=== PATIENT | female | born 1965 | race Caucasian/White ===

== ENCOUNTER 2020-10-06 11:22 | Emergency (ER) | payer BC, SELFPAY ==
--- OUTSIDE RECORDS SUMMARY | 2020-10-06 11:24 | XMS REPORT | Continuity of Care Document ---
:[address] [facility] t Address [address] [place] [address] Care Team Providers Name Role Phone Lab, [facility] Fam Pob I Attending Clinician Unavailable Doctor Unassigned, Name Attending Clinician Unavailable Problems This patient has no known problems. Allergies, Adverse Reactions, Alerts This patient has no known allergies or adverse reactions. Medications This patient has no known medications. Procedures This patient has no known procedures. Encounters Start End Encounter Admission Attending Care Care Encounter Source Date/Time Date/Time Type Type Clinicians Facility Department ID 2019-11-14 2019-11-14 Laboratory Lab, [facility] [id number] 10:25:01 10:45:01 Only Fam Pob I Health [id number] [place] [id number] [facility] [phone] [facility] Office [facility] 2019-11-07 2019-11-07 Patient Doctor GUERA [id number] 00:00:00 00:00:00 Secure Msg Unassigned, LATIA [id number] [place] [facility] [id number] 2019-11-06 2019-11-06 Laboratory Lab, [facility] [id number] 09:37:38 09:52:38 Only Fam Pob I Health [id number] [place] [id number] [facility]io [phone] [facility] 2019-11-06 2019-11-06 Letter Doctor GUERA [id number] 00:00:00 00:00:00 (Out) Unassigned, LATIA [id number] [place] [facility] [id number] [id number] Results This patient has no known results.
--- NOTE | 2020-10-06 12:31 | RAD REPORT ---
EXAM DESCRIPTION: CT - Head Brain Wo Cont - 10/06/2020 12:19 pm CLINICAL HISTORY: DIZZINESS Headache, drowsiness COMPARISON: No comparisons TECHNIQUE: All CT scans are performed using dose optimization technique as appropriate and may inclu de automated exposure control or mA/KV adjustment according to patient size. FINDINGS: No intracranial hemorrhage, hydrocephalus or extra-axial fluid collection.No areas of brai n edema or evidence of midline shift. The paranasal sinuses and mastoids are clear. The calvarium is intact. IMPRESSION: No acute intracranial abnormality.
--- NOTE | 2020-10-06 13:50 | ER ---
Nurse's Notes [facility] Name: Lizz Ruiz Age: 55 yrs Sex: Female : 1965 Arrival Date: 10/06/2020 Time: 11:22 Bed 16 Private MD: Diagnosis: Dizziness and giddiness Presentation: 10/06 11:55 Chief complaint: Patient states: Dizziness off/on since 2300 last night. Noticed both ll1 legs feels weak at 0330 am. Noticed R heel felt jittery/shaky. Tele visit doc told her to come in for eval. Coronavirus screen: Client denies travel out of the [place] in the last 14 days. At this time, the client does not indicate any symptoms associated with coronavirus-19. Ebola Screen: Patient denies travel to an Ebola-affected area in the 21 days before illness onset. Initial Sepsis Screen: Does the patient meet any 2 criteria? No. Patient's initial sepsis screen is negative. Does the patient have a suspected source of infection? No. Patient's initial sepsis screen is negative. Risk Assessment: Do you want to hurt yourself or someone else? Patient reports no desire to harm self or others. Onset of symptoms was October 05, 2020. 11:55 Method Of Arrival: Ambulatory ll1 11:55 Acuity: EMMA 3 ll1 Historical: - Allergies: 11:57 No Known Allergies; ll1 - PMHx: 11:57 stroke; Diabetes mellitus; ll1 - PSHx: 11:57 None; ll1 - Immunization history:: Client reports having NOT received the Covid vaccine. Flu vaccine is not up to date. - Social history:: Smoking status: Patient reports the use of cigarette tobacco products, smokes one-half pack cigarettes per day. - Family history:: not pertinent. - Hospitalizations: : No recent hospitalization is reported. Screenin:46 Abuse screen: Denies threats or abuse. Nutritional screening: No deficits noted. jd3 Tuberculosis screening: No symptoms or risk factors identified. Fall Risk Ambulatory Aid- None/Bed Rest/Nurse Assist (0 pts). Gait- Normal/Bed Rest/Wheelchair (0 pts) Mental Status- Oriented to own ability (0 pts). Total Anthony Fall Scale indicates No Risk (0-24 pts). Assessment: 13:45 General: Appears in no apparent distress. comfortable, Behavior is calm, cooperative, jd3 appropriate for age. Pain: Denies pain. Neuro: Level of Consciousness is awake, alert, obeys commands, Oriented to person, place, time, situation, [employer] are equal bilaterally Moves all extremities. Full function Gait is steady, Speech is normal, Facial symmetry appears normal, Pupils are PERRLA. Cardiovascular: Denies chest pain, Capillary refill < 3 seconds Patient's skin is warm and dry. Respiratory: Airway is patent Respiratory effort is even, unlabored, Respiratory pattern is regular, symmetrical, Denies cough, shortness of breath. GI: No signs and/or symptoms were reported involving the gastrointestinal system. : No signs and/or symptoms were reported regarding the genitourinary system. EENT: No signs and/or symptoms were reported regarding the EENT system. Derm: Skin is intact, Skin is dry, Skin is normal, Skin temperature is warm. Musculoskeletal: Circulation, motion, and sensation intact. Range of motion: intact in all extremities. Vital Signs: 11:55 BP 104 / 81; Pulse 81; Resp 17; Temp 97.6; Pulse Ox 97% ; Weight 108.86 kg; Height 5 ll1 ft. 5 in. (165.10 cm); Pain 0/10; 13:47 Pulse 82; Resp 16 S; Pulse Ox 97% on R/A; jd3 13:57 BP 121 / 86; Pulse 83; Resp 16 S; Pulse Ox 100% on R/A; jd3 11:55 Body Mass Index 39.94 (108.86 kg, 165.10 cm) ll1 ED Course: 11:22 Patient arrived in ED. ds1 11:55 Arm band placed on. ll1 11:57 Triage completed. ll1 12:04 Augustus Rodríguez MD is Attending Physician. rn 12:19 CT Head Brain wo Cont In Process Unspecified. EDMS 13:39 Patient placed in an exam room, on a stretcher. ll1 13:40 Mamadou Natarajan RN is Primary Nurse. jd3 13:46 Patient has correct armband on for positive identification. Bed in low position. Call jd3 light in reach. Side rails up X 1. Pulse ox on. NIBP on. 13:46 No provider procedures requiring assistance completed. Patient did not have IV access jd3 during this emergency room visit. Administered Medications: No medications were administered Outcome: 13:47 Condition: stable jd3 13:50 Discharge ordered by . rn 13:58 Discharged to home ambulatory, with family. jd3 13:58 Discharge instructions given to patient, Instructed on discharge instructions, follow up and referral plans. Demonstrated understanding of instructions, follow-up care. 13:58 Patient left the ED. jd3 Signatures: Dispatcher [employer] EDMN VilledaNina ds1 Augustus Rodríguez MD MD rn Davies, Jonathon, RN RN Giuseppe Canales RN RN ll1
--- NOTE | 2020-10-06 13:51 | EDPHYS ---
Physician Documentation [facility] Name: Lizz Ruiz Age: 55 yrs Sex: Female : 1965 Arrival Date: 10/06/2020 Time: 11:22 Bed 16 Private MD: ED Physician Augustus Rodríguez HPI: 10/06 12:45 This 55 yrs old Female presents to ER via Ambulatory with complaints of rn Dizziness. 12:45 The patient presents with dizziness, lightheadedness. Onset: The symptoms/episode rn began/occurred last night. Modifying factors: The symptoms are alleviated by nothing, the symptoms are aggravated by standing up, changing position. Associated signs and symptoms: Pertinent negatives: abdominal pain, agitation, ataxia, blurred vision, chest pain, combativeness, confusion, diaphoresis, focal weakness, head injury, headache, nausea, near-syncope, numbness, palpitations, seizure, shortness of breath, syncope, tingling, vomiting. Severity of symptoms: At their worst the symptoms were mild in the emergency department the symptoms have resolved. The patient has experienced a previous episode. The patient has not recently seen a physician. Patient states last night while at work up after bending over and felt dizzy, lightheaded. Denies head injury. Denies chest pain/shortness of breath/illness/abdominal pain/nausea/vomiting. Reports currently feels normal without dizziness or focal neurological problems. States felt slight weakness in both lower extremities at the time of dizziness. Wanted to come in to make sure that she did not have a stroke.. Historical: - Allergies: 11:57 No Known Allergies; ll1 - PMHx: 11:57 stroke; Diabetes mellitus; ll1 - PSHx: 11:57 None; ll1 - Immunization history:: Client reports having NOT received the Covid vaccine. Flu vaccine is not up to date. - Social history:: Smoking status: Patient reports the use of cigarette tobacco products, smokes one-half pack cigarettes per day. - Family history:: not pertinent. - Hospitalizations: : No recent hospitalization is reported. ROS: 12:45 Constitutional: Negative for fever, chills, and weight loss, Eyes: Negative for injury, rn pain, redness, and discharge, ENT: Negative for injury, pain, and discharge, Neck: Negative for injury, pain, and swelling, Cardiovascular: Negative for chest pain, palpitations, and edema, Respiratory: Negative for shortness of breath, cough, wheezing, and pleuritic chest pain, Abdomen/GI: Negative for abdominal pain, nausea, vomiting, diarrhea, and constipation, Back: Negative for injury and pain, : Negative for injury, bleeding, discharge, and swelling, MS/Extremity: Negative for injury and deformity, Skin: Negative for injury, rash, and discoloration, Neuro: Negative for headache, numbness, tingling, and seizure. 12:45 All other systems are negative. rn Exam: 12:45 Constitutional: This is a well developed, well nourished patient who is awake, alert, rn and in no acute distress. Ambulatory without assistance or distress Head/Face: Normocephalic, atraumatic. Eyes: Periorbital areas with no swelling, redness, or edema. Cardiovascular: Regular rate and rhythm. No pulse deficits. Respiratory: No increased work of breathing, no retractions or nasal flaring. Abdomen/GI: Soft, non-tender Skin: Warm, dry MS/ Extremity: Pulses equal, no cyanosis Neuro: Awake and alert, GCS 15, oriented to person, place, time, and situation. Cranial nerves II-XII grossly intact. Motor strength 5/5 in all extremities. Sensory grossly intact. Cerebellar exam normal. Normal gait. Vital Signs: 11:55 BP 104 / 81; Pulse 81; Resp 17; Temp 97.6; Pulse Ox 97% ; Weight 108.86 kg; Height 5 ll1 ft. 5 in. (165.10 cm); Pain 0/10; 13:47 Pulse 82; Resp 16 S; Pulse Ox 97% on R/A; jd3 13:57 BP 121 / 86; Pulse 83; Resp 16 S; Pulse Ox 100% on R/A; jd3 11:55 Body Mass Index 39.94 (108.86 kg, 165.10 cm) ll1 MDM: 12:04 Patient medically screened. rn 13:49 Differential diagnosis: CVA, generalized weakness, hypovolemia, idiopathic dizziness, rn near-syncope, TIA. Data reviewed: vital signs, nurses notes, radiologic studies, CT scan, and as a result, I will discharge patient. Counseling: I had a detailed discussion with the patient and/or guardian regarding: the historical points, exam findings, and any diagnostic results supporting the discharge/admit diagnosis, radiology results, the need for outpatient follow up, to return to the emergency department if symptoms worsen or persist or if there are any questions or concerns that arise at home. Response to treatment: the patient's condition has returned to base line, the patient is now symptom free, and as a result, I will discharge patient. Special discussion: I discussed with the patient/guardian in detail that at this point there is no indication for admission to the hospital. It is understood, however, that if the symptoms persist or worsen the patient needs to return immediately for re-evaluation. ED course: Head does not show any acute findings. Stable vital signs. Normal neurological exam. Will DC home with PCP follow-up as needed.. 10/06 12:04 Order name: CT Head Brain wo Cont; Complete Time: 12:55 rn Administered Medications: No medications were administered Disposition Summary: 10/06/20 13:50 Discharge Ordered Location: Home rn Problem: new rn Symptoms: have improved rn Condition: Stable rn Diagnosis - Dizziness and giddiness rn Followup: rn - With: Private Physician - When: As needed - Reason: Recheck today's complaints, Re-evaluation by your physician Discharge Instructions: - Discharge Summary Sheet rn - Dizziness rn Forms: - Medication Reconciliation Form rn - Thank You Letter rn - Antibiotic fall intern - Prescription Opioid Use rn Signatures: Dispatcher [employer] Augustus Fishman MD MD rn Lewis, Lynsay, RN RN ll1
[2020-10-06 14:22] VITALS: BP 121/86; O2SAT 100
[2020-10-06 14:27] VITALS: TEMP 97.6
== END 2020-10-06 13:58 | disposition home or self-care (01) ==
LOC: ER 11:22
DX: R42 Dizziness and giddiness (principal); R53.1 Weakness; E11.9 Type 2 diabetes mellitus without complications; F17.210 Nicotine dependence, cigarettes, uncomplicated; Z86.73 Personal history of transient ischemic attack (TIA), and cerebral infarction without residual deficits
CPT/HCPCS: 70450; 99283

== ENCOUNTER 2024-04-21 02:44 | Emergency (ER) | payer BC, SELFPAY ==
[2024-04-21] MEDS ORDERED: HYDROCODONE/APAP 5/325 MG TAB ONE (03:07)
[2024-04-21] MEDS ORDERED: LOSARTAN POTASSIUM 50 MG TABLET ONE (03:07)
[2024-04-21 03:22] LABS: Absolute Basophils 0.1 K/uL (0-0.5); Absolute Eosinophils 0.2 K/uL (0-0.5); Absolute Lymphocytes (CBC) 3.1 K/uL (0.7-4.9); Absolute Monocytes 0.7 K/uL (0.1-1.3); Absolute Neutrophil 5.5 K/uL (1.8-8.0); Basophils % 0.8 % (0-1.3); Eosinophils % 2.2 % (0-4.4); Hematocrit 42.9 % (36.0-45.0); Hemoglobin 14.8 g/dL (12.0-15.0); Lymphocytes % 32.2 % (15.3-44.8); MCH 32.7 pg (27.0-35.0); MCHC 34.4 g/dL (32.0-36.0); MPV 7.5 fL (7.6-11.3); Monocytes % 7.4 % (3.3-12.3); Neutrophils % 57.4 % (41.7-73.7); Platelets 303 thou/uL (152-406); RBC Red Blood Cell Count 4.51 M/uL (3.86-4.86)
[2024-04-21 04:12] LABS: Albumin 3.6 g/dL (3.4-5.0); Albumin/Globulin Ratio 0.9 (1.1-1.8); Anion Gap 9.2 mEq/L (5.0-15.0); Bilirubin Total 0.2 mg/dL (0.2-1.0); Globulin 4.1 g/dL (2.3-3.5); Protein, Total 7.7 g/dL (6.4-8.2)
[2024-04-21 04:19] LABS: Potassium 4.2 mEq/L (3.5-5.1)
--- NOTE | 2024-04-21 04:42 | RAD REPORT ---
EXAM: Extremity Venous Uni Ltd US Right Lower Extremity Venous Duplex Doppler HISTORY: Numbness, tingling COMPARISON: None TECHNIQUE: Grayscale, color Doppler, duplex Doppler, spectral Doppler images and analysis with compre ssion and augmentation of right lower extremity veins. FINDINGS: Right common femoral, greater saphenous, femoral, deep (profunda) femoral, popliteal, posterior tibia l veins unremarkable without evidence of clot. IMPRESSION: No sonographic evidence of right lower extremity DVT. Electronically signed by: Rigoberto Preciado MD 04/21/2024 04:38 AM [facility] Due to temporary technical issues with the PACS/[employer] reporting system, reports are being signed by the in-house radiologist without review as a courtesy to ensure prompt reporting the interpreting radiologist is fully responsible for the content of the report. Transcribed Date/Time: 04/21/2024 4:42 AM
--- NOTE | 2024-04-21 05:20 | ER ---
Nurse's Notes [facility] Name: Lizz Ruiz Age: 59 yrs Sex: Female : 1965 Arrival Date: 04/21/2024 Time: 02:44 Bed 5 Private MD: Diagnosis: Pain in right knee;Essential (primary) hypertension;Uncontrolled Hypertension, Diabetes Mellitus Type II, Uncontrolled Presentation: 04/21 03:01 Chief complaint: Patient states: I woke up this afternoon with this right out leg pain bm8 around my knee. Coronavirus screen: Vaccine status: At this time, the client does not indicate any symptoms associated with coronavirus-19. Ebola Screen: Patient negative for fever greater than or equal to 101.5 degrees Fahrenheit, and additional compatible Ebola Virus Disease symptoms Patient denies exposure to infectious person. Patient denies travel to an Ebola-affected area in the 21 days before illness onset. No symptoms or risks identified at this time. Initial Sepsis Screen: Does the patient meet any 2 criteria? No. Patient's initial sepsis screen is negative. Does the patient have a suspected source of infection? No. Patient's initial sepsis screen is negative. Risk Assessment: Do you want to hurt yourself or someone else? Patient reports no desire to harm self or others. Onset of symptoms was April 20, 2024 at 15:00. 03:01 Method Of Arrival: Ambulatory bm8 03:01 Acuity: EMMA 3 bm8 Triage Assessment: 03:02 General: Appears in no apparent distress. comfortable, Behavior is calm, cooperative, bm8 appropriate for age. Pain: Complains of pain in lateral aspect of right knee and lateral aspect of right calf Pain does not radiate. Pain currently is 6 out of 10 on a pain scale. EENT: No deficits noted. No signs and/or symptoms were reported regarding the EENT system. Neuro: No deficits noted. Level of Consciousness is awake, alert, obeys commands, Oriented to person, place, time, situation, Appropriate for age. Cardiovascular: Denies chest pain, Heart tones S1 S2 present Capillary refill < 3 seconds in bilateral fingers Patient's skin is warm and dry. Respiratory: Airway is patent Respiratory effort is even, unlabored, Respiratory pattern is regular, symmetrical, Breath sounds are clear bilaterally. GI: No signs and/or symptoms were reported involving the gastrointestinal system. : No signs and/or symptoms were reported regarding the genitourinary system. Derm: No signs and/or symptoms reported regarding the dermatologic system. Musculoskeletal: Circulation, motion, and sensation intact. Capillary refill < 3 seconds, in bilateral fingers. toes. Reports pain in right leg. Historical: - Allergies: 03:02 No Known Allergies; bm8 - Home Meds: 03:02 None [Active]; bm8 - PMHx: 03:02 diabetes mellitus; stroke; Hypertensive disorder; bm8 - PSHx: 03:02 None; bm8 - Immunization history:: Adult Immunizations up to date. - Infectious Disease History:: Denies. - Social history:: Smoking status: Patient reports the use of cigarette tobacco products, smokes one pack cigarettes per day. Patient/guardian denies using alcohol, street drugs. - Family history:: not pertinent. Screenin:04 [facility] ED Fall Risk Assessment (Adult) History of falling in the last 3 months, bm8 including since admission No falls in past 3 months (0 pts) Confusion or Disorientation No (0 pts) Intoxicated or Sedated No (0 pts) Impaired Gait No (0 pts) Mobility Assist Device Used No (0 pt) Altered Elimination No (0 pt) Score/Fall Risk Level 0 - 2 = Low Risk Oriented to surroundings, Maintained a safe environment, Educated pt \T\ family on fall prevention, incl call for assistance when getting out of bed, Assessed \T\ reinforced patient's understanding of fall precautions, Hourly rounding (assess needs \T\ fall precautionary measures) done, Used ambulatory aids as needed (educated on \T\ assisted with), Used gait belt as appropriate. Abuse screen: Denies threats or abuse. Nutritional screening: No deficits noted. Tuberculosis screening: No symptoms or risk factors identified. Assessment: 04:02 Reassessment: Patient appears in no apparent distress at this time. Patient and/or bm8 family updated on plan of care and expected duration. Pain level reassessed. Patient is alert, oriented x 3, equal unlabored respirations, skin warm/dry/pink. Patient states feeling better. Patient states symptoms have improved. 05:35 Reassessment: Patient appears in no apparent distress at this time. Patient and/or bm8 family updated on plan of care and expected duration. Pain level reassessed. Patient is alert, oriented x 3, equal unlabored respirations, skin warm/dry/pink. Patient denies pain at this time. Patient states feeling better. Patient states symptoms have improved. Vital Signs: 03:01 BP 191 / 95; Pulse 91; Resp 18; Temp 98.4; Pulse Ox 97% on R/A; Weight 113.4 kg; Height bm8 5 ft. 5 in. ; Pain 6/10; 04:02 BP 185 / 86; Pulse 70; Resp 18; Temp 98.4; Pulse Ox 95% on R/A; Pain 3/10; bm8 05:35 BP 165 / 88; Pulse 71; Resp 17; Temp 98.4; Pulse Ox 96% ; Pain 0/10; bm8 03:01 Body Mass Index 41.60 (113.40 kg, 165.1 cm) bm8 03:01 Pain Scale: Adult bm8 04:02 Pain Scale: Adult bm8 05:35 Pain Scale: Adult bm8 [place] Coma Score: 03:04 Eye Response: spontaneous(4). Motor Response: obeys commands(6). Verbal Response: bm8 oriented(5). Total: 15. 04:02 Eye Response: spontaneous(4). Motor Response: obeys commands(6). Verbal Response: bm8 oriented(5). Total: 15. 05:35 Eye Response: spontaneous(4). Motor Response: obeys commands(6). Verbal Response: bm8 oriented(5). Total: 15. 02/15 03:55 Eye Response: spontaneous(4). Motor Response: obeys commands(6). Verbal Response: sp4 oriented(5). Total: 15. ED Course: 04/21 02:47 Patient arrived in ED. jj6 02:51 Richard Miller MD is Attending Physician. sp4 03:00 Chidi Rose, CLINT is Primary Nurse. bm8 03:02 Triage completed. bm8 03:02 Arm band placed on right wrist. bm8 03:04 Patient has correct armband on for positive identification. Bed in low position. Call bm8 light in reach. Side rails up X 1. Adult w/ patient. Client placed on continuous cardiac and pulse oximetry monitoring. NIBP monitoring applied. Pulse ox on. NIBP on. Door closed. Noise minimized. Warm blanket given. Pillow given. Verbal reassurance given. Head of bed elevated. 03:04 No provider procedures requiring assistance completed. bm8 03:10 CBC with Diff Sent. vk 03:10 CMP Sent. vk 03:10 Initial lab(s) drawn, by me, sent to lab. Inserted saline lock: 20 gauge in right vk antecubital area, using aseptic technique. Blood collected. Flushed with 10 mL NS. 03:44 Extremity Venous Uni Ltd US In Process Unspecified. EDMS 05:18 Jerry Iglesias DO is Referral Physician. sp4 05:35 Provided Education on: post er care. bm8 05:35 IV discontinued, intact, bleeding controlled, No redness/swelling at site. Pressure bm8 dressing applied. Administered Medications: 03:33 Drug: HYDROcodone-acetaminophen PO 5 mg-325 mg 2 tabs PO once Route: PO; bm8 04:04 Follow up: Response: No adverse reaction bm8 03:33 Drug: Losartan PO 50 mg PO once Route: PO; bm8 04:04 Follow up: Response: No adverse reaction bm8 05:35 Drug: Methocarbamol PO 1500 mg PO once Route: PO; bm8 05:35 Follow up: Response: Medication Administered at Departure bm8 05:36 Drug: Ibuprofen PO 800 mg PO once Route: PO; bm8 05:36 Follow up: Response: Medication Administered at Departure bm8 Medication: 03:04 VIS not applicable for this client. bm8 Outcome: 05:20 Discharge ordered by . sp4 05:35 Discharged to home ambulatory, with family, bm8 05:35 Condition: stable 05:35 Discharge instructions given to patient, family, Instructed on discharge instructions, follow up and referral plans. no drinking with medication, no driving heavy equipment, medication usage, safety practices, Demonstrated understanding of instructions, follow-up care, medications, Prescriptions given X x5 05:37 Patient left the ED. bm8 Signatures: Dispatcher [employer] EDNH Sheryl Harris Sergey, MD MD sp4 Shwetha Odell Brad, RN RN bm8
--- NOTE | 2024-04-21 05:20 | EDPHYS ---
Physician Documentation [facility] Name: Lizz Ruiz Age: 59 yrs Sex: Female : 1965 Arrival Date: 04/21/2024 Time: 02:44 Bed 5 Private MD: ED Physician Richard Miller HPI: 04/21 02:51 This 59 yrs old Female presents to ER via Unassigned with complaints of Leg sp4 Pain, PT C/O DVT. 04/22 03:55 59-year-old female presents with complaint of right lower extremity pain. sp4 Historical: - Allergies: 04/21 03:02 No Known Allergies; bm8 - Home Meds: 03:02 None [Active]; bm8 - PMHx: 03:02 diabetes mellitus; stroke; Hypertensive disorder; bm8 - PSHx: 03:02 None; bm8 - Immunization history:: Adult Immunizations up to date. - Infectious Disease History:: Denies. - Social history:: Smoking status: Patient reports the use of cigarette tobacco products, smokes one pack cigarettes per day. Patient/guardian denies using alcohol, street drugs. - Family history:: not pertinent. ROS: 04/22 03:55 Constitutional: Negative for fever, chills, and weight loss, positive right lower sp4 extremity pain All other systems are negative, Exam: 03:55 Constitutional: This is a well developed, well nourished patient who is awake, alert, sp4 and in no acute distress. Head/Face: Normocephalic, atraumatic. Eyes: Pupils equal round and reactive to light, extra-ocular motions intact. Lids and lashes normal. Conjunctiva and sclera are not injected. Cornea within normal limits. Periorbital areas with no swelling, redness, or edema. ENT: Nares patent. No nasal discharge, no septal abnormalities noted. Tympanic membranes are normal and external auditory canals are clear. Oropharynx with no redness, swelling, or masses, exudates, or evidence of obstruction, uvula midline. Mucous membranes moist. Neck: Trachea midline, no thyromegaly or masses palpated, and no cervical lymphadenopathy. Supple, full range of motion without nuchal rigidity, or vertebral point tenderness. Chest/axilla: Normal chest wall appearance and motion. Nontender with no deformity. No lesions are appreciated. Cardiovascular: Regular rate and rhythm with a normal S1 and S2. No gallops, murmurs, or rubs. Normal PMI, no JVD. No pulse deficits. Respiratory: Lungs have equal breath sounds bilaterally, clear to auscultation and percussion. No rales, rhonchi or wheezes noted. No increased work of breathing, no retractions or nasal flaring. Abdomen/GI: Soft, with normal bowel sounds. No distension or tympany. No guarding or rebound. No evidence of tenderness throughout. Back: No spinal tenderness. No costovertebral tenderness. Skin: Warm, dry with normal turgor. Normal color with no rashes, no lesions, and no evidence of cellulitis. MS/ Extremity: Pulses equal, no cyanosis. Neurovascular intact. Full, normal range of motion. Neuro: Awake and alert, GCS 15, oriented to person, place, time, and situation. Cranial nerves II-XII grossly intact. Motor strength 5/5 in all extremities. Sensory grossly intact. Psych: Awake, alert, with orientation to person, place and time. Behavior, mood, and affect are within normal limits Vital Signs: 04/21 03:01 BP 191 / 95; Pulse 91; Resp 18; Temp 98.4; Pulse Ox 97% on R/A; Weight 113.4 kg; Height bm8 5 ft. 5 in. ; Pain 6/10; 04:02 BP 185 / 86; Pulse 70; Resp 18; Temp 98.4; Pulse Ox 95% on R/A; Pain 3/10; bm8 05:35 BP 165 / 88; Pulse 71; Resp 17; Temp 98.4; Pulse Ox 96% ; Pain 0/10; bm8 03:01 Body Mass Index 41.60 (113.40 kg, 165.1 cm) bm8 03:01 Pain Scale: Adult bm8 04:02 Pain Scale: Adult bm8 05:35 Pain Scale: Adult bm8 [place] Coma Score: 03:04 Eye Response: spontaneous(4). Motor Response: obeys commands(6). Verbal Response: bm8 oriented(5). Total: 15. 04:02 Eye Response: spontaneous(4). Motor Response: obeys commands(6). Verbal Response: bm8 oriented(5). Total: 15. 05:35 Eye Response: spontaneous(4). Motor Response: obeys commands(6). Verbal Response: bm8 oriented(5). Total: 15. 04/22 03:55 Eye Response: spontaneous(4). Motor Response: obeys commands(6). Verbal Response: sp4 oriented(5). Total: 15. MDM: 04/21 02:59 Medical Screening Exam initiated sp4 05:25 ED course: EXAM: Extremity Venous Uni Ltd US Right Lower Extremity Venous Duplex sp4 Doppler HISTORY: Numbness, tingling COMPARISON: None TECHNIQUE: Grayscale, color Doppler, duplex Doppler, spectral Doppler images and analysis with compression and augmentation of right lower extremity veins. FINDINGS: Right common femoral, greater saphenous, femoral, deep (profunda) femoral, popliteal, posterior tibial veins unremarkable without evidence of clot. IMPRESSION: No sonographic evidence of right lower extremity DVT.. 04/22 03:55 Differential diagnosis: closed fracture, contusion, abrasion, tendonitis. Data sp4 reviewed: vital signs, nurses notes, old medical records, lab test result(s), radiologic studies, ultrasound. Consideration of Admission/Observation Escalation of care including admission/observation considered. 04/21 02:59 Order name: CBC with Diff; Complete Time: 04:07 sp4 04/21 02:59 Order name: CMP; Complete Time: 05:11 sp4 04/21 02:58 Order name: Extremity Venous Uni Ltd US; Complete Time: 05:11 sp4 04/21 02:59 Order name: IV Saline Lock; Complete Time: 03:10 sp4 04/21 02:59 Order name: Labs collected and sent; Complete Time: 03:10 sp4 04/21 05:26 Order name: Knee Immobilizer: applied by MD; Complete Time: 05:26 sp4 Administered Medications: 04/21 03:33 Drug: HYDROcodone-acetaminophen PO 5 mg-325 mg 2 tabs PO once Route: PO; bm8 04:04 Follow up: Response: No adverse reaction bm8 03:33 Drug: Losartan PO 50 mg PO once Route: PO; bm8 04:04 Follow up: Response: No adverse reaction bm8 05:35 Drug: Methocarbamol PO 1500 mg PO once Route: PO; bm8 05:35 Follow up: Response: Medication Administered at Departure bm8 05:36 Drug: Ibuprofen PO 800 mg PO once Route: PO; bm8 05:36 Follow up: Response: Medication Administered at Departure bm8 Disposition Summary: 04/21/24 05:20 Discharge Ordered Notes: Location: Home sp4 Problem: new sp4 Symptoms: have improved sp4 Condition: Stable sp4 Diagnosis - Pain in right knee sp4 - Essential (primary) hypertension sp4 - Uncontrolled Hypertension, Diabetes Mellitus Type II, Uncontrolled sp4 Followup: sp4 - With: Jerry Iglesias DO - When: 7 - 10 days - Reason: Recheck today's complaints Discharge Instructions: - Discharge Summary Sheet sp4 - Hypertension, Adult, [id number] sp4 Forms: - Patient Portal Instructions sp4 Prescriptions: - losartan 50 mg Oral tablet - take 1 tablet ORAL route daily; 90 tablet; Refills: 0, Product Selection sp4 Permitted - naproxen 500 mg Oral tablet - take 1 tablet ORAL route every 12 hours PRN pain; 50 tablet; Refills: 0, sp4 Product Selection Permitted - Metformin 1,000 mg Oral tablet - take 1 tablet ORAL route every 12 hours with morning and evening meals; 180 sp4 tablet; Refills: 0, Product Selection Permitted - Tramadol 50 mg Oral Tablet - take 1 tablet ORAL route every 8 hours as needed; 12 tablet; Refills: 0, sp4 Product Selection Permitted - methocarbamol 750 mg Oral tablet - take 1 tablet ORAL route every 8 hours for 2 days PRN pain; 50 tablet; Refills: sp4 0, Product Selection Permitted Signatures: Dispatcher [employer] Richard Goodrich MD MD sp4 Chidi Rose RN RN bm8
[2024-04-21] MEDS ORDERED: IBUPROFEN 400 MG TAB ONE (05:29)
[2024-04-21] MEDS ORDERED: methocarbamoL 750 MG TAB ONE (05:29)
[2024-04-21 05:46] VITALS: TEMP 98.4
[2024-04-21 06:09] VITALS: BP 165/88; O2SAT 96
== END 2024-04-21 05:37 | disposition home or self-care (01) ==
LOC: ER 02:44
DX: M25.561 Pain in right knee (principal); I10 Essential (primary) hypertension; E11.9 Type 2 diabetes mellitus without complications; F17.210 Nicotine dependence, cigarettes, uncomplicated
CPT/HCPCS: 36415; 80053; 85025; 93971; 99284